=== PATIENT | male | born 1990 ===

== ENCOUNTER 2018-07-15 17:29 | Emergency (ER) | payer OTHER ==
[~2018-07-15] VITALS: Ht 167.6 cm; Wt 74.8 kg
[2018-07-15] MEDS ORDERED: Norco 5-325 Ta1 EACH PO (19:40)
[2018-07-15] MEDS ORDERED: Naprosyn500 MG PO (19:40)
== END 2018-07-15 19:55 | disposition home or self-care (01) ==
LOC: ER 17:29
DX: S93.401A Sprain of unspecified ligament of right ankle, initial encounter (principal); S63.501A Unspecified sprain of right wrist, initial encounter; W11.XXXA Fall on and from ladder, initial encounter
CPT/HCPCS: 29125; 73130; 73610; 73630; 99283-25